=== PATIENT | female | born 1990 | race Two or more races ===

== ENCOUNTER 2023-01-01 15:51 | Emergency (ER) | payer MEDICAID ==
[~2023-01-01] VITALS: Ht 160 cm; Wt 81.6 kg
[2023-01-01 16:35] VITALS: BP 130/73
--- NOTE | 2023-01-01 16:36 | NUR ---
L THUMB PAIN S/P FALLING OF HIS SKATEBOARD 2 DAYS AGO. VSS. [id number].
[2023-01-01] MEDS ORDERED: IBUP-1953 PO (17:15)
--- NOTE | 2023-01-01 17:15 | NUR ---
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
--- NOTE | 2023-01-01 17:22 | NUR ---
Patient discharged to home in stable condition. Written and verbal after care instructions given. Patient verbalizes understanding of instruction.
== END 2023-01-01 17:26 | disposition home or self-care (01) ==
LOC: ER 15:53
DX: S63.602A Unspecified sprain of left thumb, initial encounter (principal); V00.131A Fall from skateboard, initial encounter; Y93.51 Activity, roller skating (inline) and skateboarding; Y92.89 Other specified places as the place of occurrence of the external cause; Y99.8 Other external cause status
CPT/HCPCS: 73130-TC